=== PATIENT | male | born 1990 | race Caucasian/White ===

== ENCOUNTER → 2016-10-23 | Outpatient (CLI) | payer BC ==
[~2016-10-23] MED LIST: DEPAKOTE ER 50500 MG PO; SEROQUEL400 MG PO
== END ==
LOC: BHSO 10:54
DX: F84.0 Autistic disorder (principal)
CPT/HCPCS: 90791-AI

== ENCOUNTER → 2016-12-07 | Outpatient (CLI) | payer BC | LOC: BHSO 10:36 | DX: F84.0 Autistic disorder (principal) ==

== ENCOUNTER → 2017-02-16 | Outpatient (CLI) | payer BC | LOC: BHSO 13:15 | DX: F84.0 Autistic disorder (principal) ==

== ENCOUNTER → 2017-04-20 | Outpatient (CLI) | payer BC | LOC: BHSO 13:36 | DX: F84.0 Autistic disorder (principal) ==

== ENCOUNTER → 2017-07-30 | Outpatient (CLI) | payer BC | LOC: BHSO 15:46 | DX: F33.1 Major depressive disorder, recurrent, moderate (principal) ==

== ENCOUNTER → 2017-10-19 | Outpatient (CLI) | payer BC | LOC: BHSO 15:31 | DX: F31.73 Bipolar disorder, in partial remission, most recent episode manic (principal) | CPT/HCPCS: G0463 ==

== ENCOUNTER → 2018-01-18 | Outpatient (CLI) | payer BC | LOC: BHSO 14:52 | DX: F33.41 Major depressive disorder, recurrent, in partial remission (principal) | CPT/HCPCS: G0463 ==

== ENCOUNTER → 2018-04-19 | Outpatient (CLI) | payer BC | LOC: BHSO 16:25 | DX: F33.9 Major depressive disorder, recurrent, unspecified (principal) | CPT/HCPCS: G0463 ==

== ENCOUNTER → 2018-07-26 | Outpatient (CLI) | payer BC | LOC: BHSO 15:38 | DX: F33.42 Major depressive disorder, recurrent, in full remission (principal) | CPT/HCPCS: G0463 ==

== ENCOUNTER → 2018-12-02 | Outpatient (CLI) | payer BC | LOC: BHSO 15:56 | DX: F90.0 Attention-deficit hyperactivity disorder, predominantly inattentive type (principal) | CPT/HCPCS: G0463 ==

== ENCOUNTER → 2019-06-03 | Outpatient (CLI) | payer BC | LOC: BHSO 16:11 | DX: F33.42 Major depressive disorder, recurrent, in full remission (principal) | CPT/HCPCS: G0463 ==

== ENCOUNTER → 2020-03-31 | Outpatient (CLI) | payer BC | LOC: BHSO 15:59 | DX: F33.1 Major depressive disorder, recurrent, moderate (principal) | CPT/HCPCS: G0463 ==

== ENCOUNTER → 2020-06-01 | Outpatient (CLI) | payer BC | LOC: BHSO 16:00 | DX: F41.1 Generalized anxiety disorder (principal) | CPT/HCPCS: G0463 ==

== ENCOUNTER → 2020-07-02 | Outpatient (CLI) | payer BC | LOC: BHSO 15:40 | DX: F41.1 Generalized anxiety disorder (principal) | CPT/HCPCS: G0463 ==